=== PATIENT | male | born 1990 | race Caucasian/White ===

== ENCOUNTER 2022-08-15 18:15 | Emergency (ER) | payer SELFPAY ==
[2022-08-15 18:26] VITALS: BP 126/74; PULSE 70; RESP 18; TEMP 98.1; BMI 25.9
== END 2022-08-15 20:49 | disposition home or self-care (01) ==
LOC: JERFT 18:15
DX: R21 Rash and other nonspecific skin eruption (principal); L29.9 Pruritus, unspecified
CPT/HCPCS: 87651; 99283-25